=== PATIENT | female | born 1980 | race Caucasian/White ===

== ENCOUNTER 2019-08-11 17:27 | Emergency (ER) | payer BC, SELFPAY ==
[2019-08-11 17:59] VITALS: BP 120/70; PULSE 108; RESP 18; TEMP 37.4; O2SAT 100
--- NOTE | 2019-08-11 20:10 | ED.BACK ---
HPI - Back Pain/Injury General Chief Complaint: Back Pain/Injury Stated Complaint: 12 weeks preg, low back pain Time Seen by Provider: 08/11/19 19:24 Source: patient Mode of arrival: ambulatory Limitations: no limitations History of Present Illness HPI Narrative: This is a 38 year old 12 weeks that presents to the ER for low back pain since yesterday. Reports right low back/buttock pain. Reports the pain radiates down her leg. No known injury or trauma. She has not taken anything for the pain as she was unsure what was safe in . Pain is worse with movement and relieved with rest. Denies fever, abdominal pain, pelvic cramping, vaginal bleeding, vomiting, dysuria, or hematuria. Related Data Home Medications Medication Instructions Recorded Confirmed [id number] acid 1 tablet PO DAILY 08/11/19 [ Multi] Allergies Allergy/AdvReac Type Severity Reaction Status Date / Time Penicillins Allergy Intermediate HIVES/WELTS Verified 08/11/19 18:02 Review of Systems Review of Systems: Narrative: CONSTITUTIONAL: Denies fever GASTROINTESTINAL: Denies abdominal pain, nausea, vomiting GENITOURINARY: Denies dysuria or hematuria. MUSCULOSKELETAL: Reports back pain, joint pain, and myalgia. NEUROLOGIC: Denies numbness, or weakness. All systems reviewed & are unremarkable except as noted in HPI and below PMFSH Social History Social History (Updated 08/11/19 @ 20:16 by Halie Rodriguez PA-C) Smoking status: Former smoker Substance use: never Gender identity (if verbalized by the patient): Female Exam Narrative: Exam Narrative: GENERAL: Well-appearing, well-nourished, and in no acute distress. HEAD: Normocephalic, atraumatic. EYES: EOMI. CHEST: Clear to auscultation. No respiratory distress. No wheezes rales or rhonchi HEART: Regular rate and rhythm. No murmur heard. Normal peripheral pulses. ABDOMEN: Soft, nontender, nondistended, normal active bowel sounds. BACK: No midline spinal tenderness EXTREMITIES: Normal range of motion. No edema. Strength equal in bilateral lower extremities. Normal patellar reflexes bilaterally SKIN: Warm, dry, no rash. NEURO: No focal deficits. Alert and oriented x3. PSYCH: Normal mood and affect Course Consultations Consultation #1: Spoke with Dr. Kumar about patient work-up will follow-up in clinic Date: 08/11/19 Time: 21:02 Vital Signs Vital signs: Vital Signs Temperature 99.4 F 08/11/19 17:59 Pulse Rate 108 H 08/11/19 17:59 Respiratory Rate 18 08/11/19 17:59 Blood Pressure 120/70 08/11/19 17:59 Pulse Oximetry 100 08/11/19 17:59 Temperature 99.4 F 08/11/19 17:59 Pulse Rate 108 H 08/11/19 17:59 Respiratory Rate 18 08/11/19 17:59 Blood Pressure 120/70 08/11/19 17:59 Pulse Oximetry 100 08/11/19 17:59 Procedures Other Procedure Procedure 1: Other Procedure: Bedside ultrasound showed good movement and cardiac motion MDM - Back Pain/Injury MDM Narrative Medical decision making narrative: Patient presents to the emergency department for low back pain since yesterday. Patient is 12 weeks . No known injury or trauma. She is neurologically intact. No midline spinal tenderness. Denies any urinary complaints, abdominal pain, vomiting, pelvic cramping or vaginal bleeding. UA is without evidence of infection. Bedside ultrasound shows good movement and cardiac motion. Patient given a dose of Tylenol in the ED. She was instructed to rest, use ice/heat and take Tylenol as needed for pain. I spoke with Dr. Kumar about patient and work-up. She is to follow-up in clinic. Patient was given warnings to return to the ER Lab Data Labs: Lab Results 08/11/19 Range/Units 20:11 Urine Color Straw (Yellow) Urine Appearance Cloudy H (Clear) Urine pH 7.0 (5.0-9.0) Ur Specific [place] 1.006 (1.001-1.035) Urine Protein Negative (Negative) mg/dL Urine Glucose (UA)
[2019-08-11] MEDS: ACETAMINOPHEN 500 MG TABLET 1000 MG PO (20:20)
[2019-08-11 20:21] LABS: Add Urine Microscopic? YES; Appearance Urine Cloudy (Clear); Bacteria Urine Trace /hpf; Bilirubin Urine Negative (Negative); Blood Urine Negative (Negative); Color Urine Straw (Yellow); Glucose Urine UA Negative (Negative); Ketones Urine Negative (Negative); Leukocyte Esterase Ur Negative LEU/UL (Negative); Nitrate Urine Negative (Negative); Protein Urine Negative (Negative); RBC Urine 0-2 /hpf (0-2); Specific Grav Ur 1.006 (1.001-1.035); Squamous Epithelial Cell Urine Many /hpf (Few); Urobilinogen Urine Negative mg/dL (<2.0); WBC Urine 0-3 /hpf
== END 2019-08-11 21:13 | disposition home or self-care (01) ==
PROVIDERS: Physician Assistant; Emergency Provider Emergency Medicine
DX: O99.89 Other specified diseases and conditions complicating pregnancy, childbirth and the puerperium (principal); M54.41 Lumbago with sciatica, right side; Z87.891 Personal history of nicotine dependence; Z3A.12 12 weeks gestation of pregnancy
CPT/HCPCS: 81001; 99283; A9270

== ENCOUNTER 2019-10-22 21:35 | Observation (INO) | payer BC, SELFPAY ==
[2019-10-22 22:03] VITALS: BP 122/61; PULSE 97; TEMP 37.1
[2019-10-22 22:17] LABS: Add Urine Microscopic? YES; Appearance Urine Cloudy (Clear); Bacteria Urine Trace /hpf; Bilirubin Urine Negative (Negative); Blood Urine Negative (Negative); Color Urine Yellow (Yellow); Glucose Urine UA Negative (Negative); Ketones Urine Negative (Negative); Leukocyte Esterase Ur Negative LEU/UL (Negative); Nitrate Urine Negative (Negative); Protein Urine Negative (Negative); RBC Urine 0-2 /hpf (0-2); Specific Grav Ur 1.011 (1.001-1.035); Squamous Epithelial Cell Urine Many /hpf (Few); Urobilinogen Urine Negative mg/dL (<2.0); WBC Urine 0-3 /hpf
--- NOTE | 2019-11-01 09:38 | P.PNOB_ITS ---
OB - Triage/Final Diagnosis Evaluation Laboratory results: Laboratory Tests 10/22/19 22:04 Urine Color Yellow Urine Appearance Cloudy H Urine pH 6.0 Ur Specific [place] 1.011 Urine Protein Negative Urine Glucose (UA) Negative Urine Ketones Negative Ur Blood (Man) Negative Urine Nitrate Negative Urine Bilirubin Negative Urine Urobilinogen Negative Leukocyte Esterase Rfl Negative Urine RBC 0-2 Urine WBC 0-3 Ur Squamous Epith Cells Many H Urine Bacteria Trace Final Diagnosis (1) Abdominal pain affecting , antepartum: Code(s): O26.899 - Other specified related conditions, unspecified trimester; R10.9 - Unspecified abdominal pain Status: Acute
== END 2019-10-22 22:30 | disposition home or self-care (01) ==
PROVIDERS: Admitting Provider Obstetrics & Gynecology; Visit Provider Obstetrics & Gynecology
DX: O26.892 Other specified pregnancy related conditions, second trimester (principal); R10.9 Unspecified abdominal pain; Z3A.22 22 weeks gestation of pregnancy
CPT/HCPCS: 81001; G0378; G0379

== ENCOUNTER 2019-11-16 12:49 | Observation (INO) | payer BC, SELFPAY ==
[2019-11-16] VITALS (8 sets, daily range): BP systolic 109–129; BP diastolic 56–73; PULSE 88–102; TEMP 37.1; BMI 36.6
--- NOTE | ~2019-11-16 | US_ITS ---
US right upper quadrant INDICATION: Right upper quadrant abdominal pain. PROCEDURE: Realtime right upper abdominal ultrasound. COMPARISON: No prior studies for comparison. FINDINGS: The pancreas is not visualized due to bowel gas. Liver echotexture is normal without focal mass or intrahepatic biliary dilatation. There is normal directional flow in the portal vein. The gallbladder is normal without stones, gallbladder wall thickening or pericholecystic fluid. There is gallbladder sludge. Common bile duct measures 3 mm. No sonographic Garza's sign. IMPRESSION: 1: Gallbladder sludge. Otherwise, unremarkable limited abdominal ultrasound. Reviewed, dictated and finalized at location A.
[2019-11-16 13:54] LABS: Basophils Percent Auto 0.1 % (0.2-1.2); Eosinophils Absolute Auto 0.1 K/mm3 (0-0.3); Eosinophils Percent Auto 0.7 % (0-4.4); Hematocrit 27.2 % (37.0-47.0); Immature Granulocyte Absolute 0.14 K/mm3 (0.00-0.031); Immature Granulocyte Percent A 1.7 % (0-0.5); Lymphocytes Absolute Auto 2.05 K/mm3 (0.9-3.2); Lymphocytes Percent Auto 25.2 % (18.3-44.2); Mean Corpuscular HGB Conc 33.1 g/dl (32-36); Mean Corpuscular Volume 84.5 fl (80-100); Mean Platelet Volume 9.5 fl (7.4-10.4); Monocytes Absolute Auto 0.6 K/mm3 (0.1-0.6); Monocytes Percent Auto 6.9 % (2.6-8.5); Neutrophils Absolute Auto 5.3 K/mm3 (1.3-6.7); Neutrophils Percent Auto 65.4 % (45.5-73.1); Platelet Count Result 332 k/mm3 (150-375); Red Blood Count 3.22 M/mm3 (4.2-5.4); White Blood Count 8.1 K/mm3 (4.5-10.0)
[2019-11-16 13:55] LABS: Add Urine Microscopic? YES; Appearance Urine Cloudy (Clear); Bacteria Urine Trace /hpf; Bilirubin Urine Negative (Negative); Blood Urine Negative (Negative); Color Urine Straw (Yellow); Glucose Urine UA Negative (Negative); Ketones Urine Negative (Negative); Leukocyte Esterase Ur Negative LEU/UL (Negative); Nitrate Urine Negative (Negative); Protein Urine Negative (Negative); RBC Urine 0-2 /hpf (0-2); Specific Grav Ur 1.008 (1.001-1.035); Squamous Epithelial Cell Urine Many /hpf (Few); Urobilinogen Urine Negative mg/dL (<2.0); WBC Urine 0-3 /hpf
[2019-11-16] MEDS: ONDANSETRON HCL ODT 4 MG TABLET PO (14:07)
[2019-11-16] MEDS: FAMOTIDINE 20 MG TABLET PO (14:07)
--- NOTE | 2019-11-16 14:09 | OBADM ---
This patient, Emiliana Felix, admitted to the OB room OB Post 116 for observation. Patient/family oriented to hospital policies and general routines including ID bracelet, bed and alarms, visiting hours, pain management, procedures, bathroom and other care routines, personal items, smoking policy, room service/diet, and visiting hours. Patient/Family are encouraged to report perceived risks to care and to ask questions if they do not understand what they are told or what they should do.
[2019-11-16 14:28] LABS: Lipase 27 U/L (23-300)
[2019-11-16 14:30] LABS: Alanine Aminotransferase 11 U/L (4-35); Albumin Level 3.4 g/dL (3.5-5.1); Alkaline Phosphatase 59 U/L (38-126); Aspartate Amino Transferase 17 U/L (14-36); Bilirubin,Total < 0.1 mg/dL (0.2-1.3); Blood Urea Nitrogen 8 mg/dL (7-17); Calcium 8.1 mg/dL (8.4-10.2); Carbon Dioxide 22 mmol/L (22-30); Chloride 105 mmol/L (98-107); Estimated CRCL calculation 133 ml/min; Estimated Glomerular Filt Rate > 60; Glucose 108 mg/dL (65-105); Potassium 3.6 mmol/L (3.4-5.0); Sodium 134 mmol/L (137-145); Uric Acid 3.9 mg/dL (2.5-7.5)
[2019-11-16 15:15] LABS: Appearance Urine Cloudy (Clear); Color Urine Straw (Yellow)
[2019-11-16 15:16] LABS: Glucose Urine UA Negative (Negative); Protein Urine Negative (Negative); Specific Grav Ur 1.008 (1.001-1.035)
[2019-11-16 15:18] LABS: Blood Urine Negative (Negative); Ketones Urine Negative (Negative)
[2019-11-16 15:19] LABS: Bilirubin Urine Negative (Negative); Nitrate Urine Negative (Negative)
[2019-11-16 15:20] LABS: Urobilinogen Urine Negative mg/dL (<2.0)
[2019-11-16 15:23] LABS: Add Urine Microscopic? YES; RBC Urine 0-2 /hpf (0-2)
[2019-11-16 15:24] LABS: Squamous Epithelial Cell Urine Many /hpf (Few); WBC Urine 0-3 /hpf (0-3)
[2019-11-16 15:25] LABS: Bacteria Urine Trace /hpf
[2019-11-16 15:26] LABS: Leukocyte Esterase Ur Negative LEU/UL (NEGATIVE)
--- NOTE | 2019-11-20 10:04 | PM.OBTRLD ---
OB - Triage/Final Diagnosis Evaluation Laboratory results: Laboratory Tests 11/16/19 11/16/19 11/16/19 13:38 13:38 13:38 WBC 8.1 RBC 3.22 L Hgb 9.0 L Hct 27.2 L MCV 84.5 MCH 28.0 MCHC 33.1 RDW 13.0 Plt Count 332 MPV 9.5 Immature Gran % (Auto) 1.7 H Neut % (Auto) 65.4 Lymph % (Auto) 25.2 [place] % (Auto) 6.9 Eos % (Auto) 0.7 Baso % (Auto) 0.1 L Lymph # (Auto) 2.05 [place] # (Auto) 0.6 Eos # (Auto) 0.1 Baso # (Auto) 0.0 Abs Immat Gran (auto) 0.14 H Absolute Neuts (auto) 5.3 Absolute Nucleated RBC 0.0 Nucleated RBC % 0.0 Sodium 134 L Potassium 3.6 Chloride 105 Carbon Dioxide 22 BUN 8 Creatinine 0.50 L Estim Creat Clear Calc 133 Estimated GFR > 60 Glucose 108 H Uric Acid 3.9 Calcium 8.1 L Total Bilirubin < 0.1 L AST 17 ALT 11 Alkaline Phosphatase 59 Total Protein 6.0 L Albumin 3.4 L Lipase Urine Color Straw Urine Appearance Cloudy H Urine pH 6.0 Ur Specific [place] 1.008 Urine Protein Negative Urine Glucose (UA) Negative Urine Ketones Negative Ur Blood (Man) Negative Urine Nitrate Negative Urine Bilirubin Negative Urine Urobilinogen Negative Ur Leukocyte Esterase Negative Leukocyte Esterase Rfl Urine RBC 0-2 Urine WBC 0-3 Ur Squamous Epith Cells Many H Urine Bacteria Trace 11/16/19 11/16/19 13:38 13:38 WBC RBC Hgb Hct MCV MCH MCHC RDW Plt Count MPV Immature Gran % (Auto) Neut % (Auto) Lymph % (Auto) [place] % (Auto) Eos % (Auto) Baso % (Auto) Lymph # (Auto) [place] # (Auto) Eos # (Auto) Baso # (Auto) Abs Immat Gran (auto) Absolute Neuts (auto) Absolute Nucleated RBC Nucleated RBC % Sodium Potassium Chloride Carbon Dioxide BUN Creatinine Estim Creat Clear Calc Estimated GFR Glucose Uric Acid Calcium Total Bilirubin AST ALT Alkaline Phosphatase Total Protein Albumin Lipase 27 Urine Color Straw Urine Appearance Cloudy H Urine pH 6.0 Ur Specific [place] 1.008 Urine Protein Negative Urine Glucose (UA) Negative Urine Ketones Negative Ur Blood (Man) Negative Urine Nitrate Negative Urine Bilirubin Negative Urine Urobilinogen Negative Ur Leukocyte Esterase Leukocyte Esterase Rfl Negative Urine RBC 0-2 Urine WBC 0-3 Ur Squamous Epith Cells Many H Urine Bacteria Trace Final Diagnosis (1) Abdominal pain affecting , antepartum: Code(s): O26.899 - Other specified related conditions, unspecified trimester; R10.9 - Unspecified abdominal pain Status: Acute
== END 2019-11-16 15:25 | disposition home or self-care (01) ==
PROVIDERS: Admitting Provider Obstetrics & Gynecology; Visit Provider Obstetrics & Gynecology
DX: O26.892 Other specified pregnancy related conditions, second trimester (principal); R10.9 Unspecified abdominal pain; Z3A.26 26 weeks gestation of pregnancy
CPT/HCPCS: 36415; 76705; 80053; 81001; 83690; 84550; 85025; A9270; G0378; G0379

== ENCOUNTER 2019-11-30 11:11 | Outpatient (CLI) | payer BC, SELFPAY ==
[2019-11-30 13:50] LABS: Hematocrit 28.4 % (37.0-47.0); Hemoglobin 9.3 g/dL (12.0-15.0)
[2019-11-30 13:51] LABS: Glucose 1 Hour PP 50gm Dose 180 mg/dL
[2019-11-30 14:24] LABS: HIV 1/2 Ab P24 Ag Result Negative (Negative)
[2019-11-30] MEDS: RHO(D) IMMUNE GLOBULIN 300 MCG SYRINGE IM (17:32)
== END 2019-11-30 11:12 | disposition home or self-care (01) ==
LOC: ANHLAB 11:13
PROVIDERS: Visit Provider Obstetrics & Gynecology
DX: Z34.02 Encounter for supervision of normal first pregnancy, second trimester (principal)
CPT/HCPCS: 36415; 82947; 85014; 85018; 85461; 86703; 90384; 96372; G0432; J2790

== ENCOUNTER 2019-12-05 11:14 | Outpatient (CLI) | payer BC, SELFPAY ==
[2019-12-05 12:02] LABS: Glucose Fasting Gestational 95 mg/dL (>/=95)
[2019-12-05 14:09] LABS: Glucose 1 Hour Gest 230 mg/dL (>/=180)
[2019-12-05 15:02] LABS: Glucose 2 Hour Gest 220 mg/dL (>/= 155)
[2019-12-05 16:14] LABS: Glucose 3 Hour Gest 109 mg/dL (>/=140)
== END 2019-12-05 11:15 | disposition home or self-care (01) ==
PROVIDERS: Visit Provider Obstetrics & Gynecology
DX: R73.09 Other abnormal glucose (principal)
CPT/HCPCS: 36415; 82951; 82952

== ENCOUNTER 2019-12-19 01:12 | Observation (INO) | payer BC, SELFPAY ==
[2019-12-19 01:40] VITALS: BMI 38.7
[2019-12-19 01:45] VITALS: TEMP 37.2
[2019-12-19 01:57] VITALS: BP 120/58; PULSE 89
[2019-12-19 02:08] LABS: Add Urine Microscopic? NO; Appearance Urine Clear (Clear); Bilirubin Urine Negative (Negative); Blood Urine Negative (Negative); Color Urine Straw (Yellow); Glucose Urine UA Negative (Negative); Ketones Urine Negative (Negative); Leukocyte Esterase Ur Negative LEU/UL (Negative); Nitrate Urine Negative (Negative); Protein Urine Negative (Negative); Specific Grav Ur 1.009 (1.001-1.035); Urobilinogen Urine Negative mg/dL (<2.0)
--- NOTE | 2019-12-29 08:18 | P.PNOB_ITS ---
OB - Triage/Final Diagnosis Visit Information Comments/Additional reasons for admission: Abdominal pain Evaluation Laboratory results: Laboratory Tests 12/19/19 01:44 Urine Color Straw Urine Appearance Clear Urine pH 6.0 Ur Specific [place] 1.009 Urine Protein Negative Urine Glucose (UA) Negative Urine Ketones Negative Ur Blood (Man) Negative Urine Nitrate Negative Urine Bilirubin Negative Urine Urobilinogen Negative Leukocyte Esterase Rfl Negative
== END 2019-12-19 03:10 | disposition home or self-care (01) ==
PROVIDERS: Admitting Provider Obstetrics & Gynecology; Visit Provider Obstetrics & Gynecology
DX: O26.899 Other specified pregnancy related conditions, unspecified trimester (principal); R10.9 Unspecified abdominal pain; Z3A.00 Weeks of gestation of pregnancy not specified
CPT/HCPCS: 81003; G0378; G0379

== ENCOUNTER 2019-12-28 11:46 | Outpatient (CLI) | payer BC, SELFPAY ==
[2019-12-28 12:01] LABS: Hematocrit 31.1 % (37.0-47.0); Hemoglobin 10.2 g/dL (12.0-15.0); Mean Corpuscular HGB Conc 32.8 g/dl (32-36); Mean Corpuscular Hemoglobin 27.3 pg (26-34); Mean Corpuscular Volume 83.4 fl (80-100); Mean Platelet Volume 9.4 fl (7.4-10.4); Platelet Count Result 335 k/mm3 (150-375); Red Blood Count 3.73 M/mm3 (4.2-5.4); Red Cell Distribution Width 17.3 % (11.5-14.5); White Blood Count 10.6 K/mm3 (4.5-10.0)
== END 2019-12-28 11:47 | disposition home or self-care (01) ==
LOC: ANHLAB 11:47
PROVIDERS: Visit Provider Obstetrics & Gynecology
DX: Z34.02 Encounter for supervision of normal first pregnancy, second trimester (principal)
CPT/HCPCS: 36415; 59025; 76819; 85027

== ENCOUNTER 2020-02-09 10:35 | Inpatient (IN) | payer BC, SELFPAY ==
[2020-02-09] VITALS (8 sets, daily range): BP systolic 106–127; BP diastolic 53–109; PULSE 87–109; RESP 18–20; TEMP 36.6–36.8; BMI 39.4
--- NOTE | 2020-02-09 12:49 | PM.IMHP ---
H&P: HPI History of Present Illness Date/Time: 02/09/20 12:49 Chief complaint: Induction of Labor Narrative: Emiliana Felix is a 39yo @ 38.4wks who presented to L&D for her routine testing. She would found to have 3 prolonged decels. She reports feeling contractions. She endorses good movement. No LOF or VB. Her is complicated by: - AMA, cffDNA negative - A2GDM on insulin- lispro 6u TIDAC, Latus 18/24u qAM/PM - H/o of PE diagnosed in third trimester; lovenox 100mg BID --> was to be converted to heparin 35,000 q12h @ 36wks. Pt's last dose of anticoagulation was on 02/07/20 w/ Lovenox. - Rh negative s/p rhogam Review of Systems Constitutional: Constitutional: Denies body ache(s) and Denies chills Eyes: Eyes: Denies blurry vision Cardiovascular: Cardiovascular: Denies chest pain and Denies palpitations Respiratory: Respiratory: Denies cough and Denies dyspnea Gastrointestinal: Gastrointestinal: Reports abdominal pain (contractions), Denies nausea and Denies vomiting Genitourinary: Comments: no VB or LOF Neurologic: Denies headache(s) Psychiatric: Psychiatric: Denies anxiety [facility] Family History Family History Grandparent Cancer Social History Social History Smoking status: Former smoker Substance use: never Gender identity (if verbalized by the patient): Female Spiritual care concerns: No Meds Home Medications and Allergies Home Medications Medication Instructions Recorded Confirmed Type Multi 1 tablet PO DAILY 08/11/19 01/18/20 History ferrous sulfate 325 mg PO HS 01/18/20 01/18/20 History heparin (porcine) 20,000 unit SUBCUT BID 01/19/20 01/19/20 History insulin glargine [Lantus U-100 18 unit SUBCUT BID 01/19/20 02/02/20 History Insulin] Allergies Allergy/AdvReac Type Severity Reaction Status Date / Time Penicillins Allergy Intermediate HIVES/WELTS Verified 01/19/20 14:30 Exam Const: General: comfortable and no acute distress Resp: Effort & Inspection: normal respiratory effort Cardio: Rate: regular rate : Other: FHT's: 140's/ mod veronica/ + accels/ prolonged decels x4 (lasting 2-3min to 120's) - cat 2 TOCO: irregular ctx's Cervix: closed/thick/high Membranes: intact position: cephalic Skin: General skin exam: normal color Neuro: Speech: normal speech Extrem: General: normal to inspection Psych: Affect: normal affect Assessment and Plan Assessment and plan (1) Pulmonary embolism affecting : Qualifiers: Trimester: third trimester Qualified Code(s): O88.213 - Thromboembolism in , third trimester Code(s): O88.219 - Thromboembolism in , unspecified trimester Status: Acute (2) Gestational diabetes: Qualifiers: Gestational diabetes mellitus control: insulin-controlled Trimester: third trimester Qualified Code(s): O24.414 - Gestational diabetes mellitus in , insulin controlled Code(s): O24.419 - Gestational diabetes mellitus in , unspecified control Status: Acute (3) : Qualifiers: Weeks of gestation: 38 weeks Qualified Code(s): Z3A.38 - 38 weeks gestation of Code(s): Z34.90 - Encounter for supervision of normal , unspecified, unspecified trimester Status: Acute (4) Advanced maternal age (AMA) in : Status: Acute (5) heart deceleration: Status: Acute Assessment and Plan: - Pt presented for routine testing and was found to have 3 prolonged decels below baseline lasting 1-2 min - Due to patients complex medical history; plan was made for induction today - Cervix close; will proceed with cervidil induction - Continuous monitoring; good variability noted, will monitor closely for decels - Anesthesia consult Additional Plan
[2020-02-09 13:26] LABS: Basophils Percent Auto 0.2 % (0.2-1.2); Eosinophils Absolute Auto 0.1 K/mm3 (0-0.3); Eosinophils Percent Auto 0.6 % (0-4.4); Hematocrit 37.1 % (37.0-47.0); Hemoglobin 12.4 g/dL (12.0-15.0); Immature Granulocyte Absolute 0.21 K/mm3 (0.00-0.031); Immature Granulocyte Percent A 1.8 % (0-0.5); Lymphocytes Absolute Auto 3.53 K/mm3 (0.9-3.2); Lymphocytes Percent Auto 30.3 % (18.3-44.2); Mean Corpuscular HGB Conc 33.4 g/dl (32-36); Mean Corpuscular Hemoglobin 28.2 pg (26-34); Mean Corpuscular Volume 84.3 fl (80-100); Mean Platelet Volume 9.9 fl (7.4-10.4); Monocytes Absolute Auto 0.8 K/mm3 (0.1-0.6); Monocytes Percent Auto 6.7 % (2.6-8.5); Neutrophils Percent Auto 60.4 % (45.5-73.1); Platelet Count Result 339 k/mm3 (150-375); Red Cell Distribution Width 18.2 % (11.5-14.5); White Blood Count 11.6 K/mm3 (4.5-10.0)
--- NOTE | 2020-02-09 14:34 | LDADM ---
This patient, Emiliana Felix, was admitted to Labor/Delivery/Recovery 104 on 02/09/20 at 10:35. Plans for labor, pain management and were discussed with patient. Patient/family oriented to hospital policies and general routines including ID bracelet, bed and alarms, visiting hours, pain management, procedures, bathroom and other care routines, personal items, smoking policy, room service/diet and guest tray routines, infant security routines, and visiting hours. Patient/Family are encouraged to report perceived risks to care and to ask questions if they do not understand what they are told or what they should do. See OBIX for further documentation.
[2020-02-09] MEDS: DINOPROSTONE 10 MG VAG INSERT VAGINAL (14:35)
[2020-02-09 15:10] LABS: Glucose Point of Care 119 (65-105)
--- NOTE | 2020-02-09 16:03 | WPDANESEPP ---
Anes - Eval Pre Procedure Procedure: Labor Epidural Date/Time: 02/09/20 16:03 Surgeon: Spencer Kumar Preop Diagnosis: Pain During Labor Pre Op Diagnosis: Induction of Labor Patient Data Age: 39 Gender: F Height: Weight: Last Vital Signs Pulse 109 H 02/09/20 16:01 BP 108/61 02/09/20 16:01 Allergies Allergy/AdvReac Type Severity Reaction Status Date / Time Penicillins Allergy Intermediate HIVES/WELTS Verified 01/19/20 14:30 Home Medications Medication Instructions Recorded Confirmed Type Multi 1 tablet PO DAILY 08/11/19 02/09/20 History ferrous sulfate 325 mg PO HS 01/18/20 02/09/20 History heparin (porcine) 20,000 unit SUBCUT BID 01/19/20 01/19/20 History insulin glargine [Lantus U-100 18 unit SUBCUT QAM 01/19/20 02/09/20 History Insulin] famotidine 20 mg PO DAILY 02/09/20 02/09/20 History insulin glargine [Lantus U-100 24 unit SUBCUT HS 02/09/20 02/09/20 History Insulin] insulin regular hum U-500 conc 6 unit SUBCUT QACBREAK 02/09/20 02/09/20 History [Humulin R U-500 (Conc) Insulin] insulin regular hum U-500 conc 6 unit SUBCUT QACDINNER 02/09/20 02/09/20 History [Humulin R U-500 (Conc) Insulin] insulin regular hum U-500 conc 6 unit SUBCUT QACLUNCH 02/09/20 02/09/20 History [Humulin R U-500 (Conc) Insulin] Laboratory Tests 02/09/20 02/09/20 02/09/20 13:18 13:18 13:18 WBC 11.6 K/mm3 H K/mm3 (4.5-10.0) RBC 4.40 M/mm3 M/mm3 (4.2-5.4) Hgb 12.4 g/dL g/dL (12.0-15.0) Hct 37.1 % % (37.0-47.0) MCV 84.3 fl fl (80-100) MCH 28.2 pg pg (26-34) MCHC 33.4 g/dl g/dl (32-36) RDW 18.2 % H % (11.5-14.5) Plt Count 339 k/mm3 k/mm3 (150-375) MPV 9.9 fl fl (7.4-10.4) Immature Gran % (Auto) 1.8 % H % (0-0.5) Neut % (Auto) 60.4 % % (45.5-73.1) Lymph % (Auto) 30.3 % % (18.3-44.2) [place] % (Auto) 6.7 % % (2.6-8.5) Eos % (Auto) 0.6 % % (0-4.4) Baso % (Auto) 0.2 % % (0.2-1.2) Lymph # (Auto) 3.53 K/mm3 H K/mm3 (0.9-3.2) [place] # (Auto) 0.8 K/mm3 H K/mm3 (0.1-0.6) Eos # (Auto) 0.1 K/mm3 K/mm3 (0-0.3) Baso # (Auto) 0.0 K/mm3 K/mm3 (0.0-0.1) Abs Immat Gran (auto) 0.21 K/mm3 H K/mm3 (0.00-0.031) Absolute Neuts (auto) 7.0 K/mm3 H K/mm3 (1.3-6.7) Absolute Nucleated RBC 0.0 K/mm3 K/mm3 (0.0-0.012) Nucleated RBC % 0.0 % % (0.0-0.2) POC Capillary Glucose RPR Pending Blood Type A Negative Antibody Screen Negative 02/09/20 15:07 WBC RBC Hgb Hct MCV MCH MCHC RDW Plt Count MPV Immature Gran % (Auto) Neut % (Auto) Lymph % (Auto) [place] % (Auto) Eos % (Auto) Baso % (Auto) Lymph # (Auto) [place] # (Auto) Eos # (Auto) Baso # (Auto) Abs Immat Gran (auto) Absolute Neuts (auto) Absolute Nucleated RBC Nucleated RBC % POC Capillary Glucose 119 mg/dl H mg/dl (65-105) RPR Blood Type Antibody Screen : gestational age (MANJU 02/18) Patient hx anesthesia problems: none Family hx anesthesia problems: none [facility] Past Medical History Medical History (Updated 02/09/20 @ 16:04 by Jaun Kirby CRNA) GERD (gastroesophageal reflux disease) Gestational diabetes Pulmonary embolism affecting Family History Family History Grandparent Cancer Social History Social History Smoking status: Never smoker Substance use: never Gender identity (if verbalized by the patient): Female Spiritual care concerns: No Exam Day of Procedure 02/09/20 16:03 Patient weight: obe
[2020-02-09] MEDS: INSULIN HUMAN REGULAR (*BKC) 100 UNITS/ML 6 UNITS SUB-Q (18:56)
[2020-02-09 21:05] LABS: Glucose Point of Care 85 (65-105)
[2020-02-10] VITALS (76 sets, daily range): BP systolic 97–140; BP diastolic 43–98; PULSE 66–101; RESP 14–20; TEMP 36.1–37.1; O2SAT 95–100
[2020-02-10 02:42] LABS: Glucose Point of Care 95 (65-105)
[2020-02-10] MEDS: LACTATED RINGERS 1,000 ML 125 ML IV CONT ×2 (03:04→10:43)
[2020-02-10] MEDS: OXYTOCIN 30 UNITS/NS 500 ML 30 UNITS/500 ML BAG IV CONT (03:04)
[2020-02-10 05:50] LABS: Glucose Point of Care 98 (65-105)
[2020-02-10 09:32] LABS: Glucose Point of Care 78 (65-105)
--- NOTE | 2020-02-10 10:29 | P.PNOB_ITS ---
Pain Control Date/time seen: 02/10/20 10:29 Pain control: tolerating well Pelvic Exam Dilation (cm): 0 Effacement (%): 50 station: -4 Amniotic membrane status: Intact Contractions Monitor mode: External Contraction frequency: 3 Contraction pattern: Regular Status status: Category ll Assessment and Plan Pitocin rate (mU/min): 8 Assessment: other (pitocin stopped when recurrent variable noted) Plan: Comments: - pt s/p cervidil overnight; removed @ 0230 and cervix continued to be closed - pitocin augmentation was started; pt was ryan adequately, however, occasional decels were noted but resolved spontaneously and variability was reassuring - pt has remained closed and severe variable decels were noted; pitocin was discontinued with intrauterine resuscitation, heart tones returned to baseline with decreased variability - pt is remote from delivery and inability to augment; plan for primary c- section - risks/benefits explained in detail; pt agrees - anesthesia aware of pts hx of PE; however, no anticoagulation since 02/07/20-- plan to proceed with spinal epidural
[2020-02-10] MEDS: CLINDAMYCIN 900 MG/NS 50 ML 900 MG/50 ML PIGGYBACK 50 MG IVPB (10:42)
--- NOTE | 2020-02-10 11:10 | WPDANESEFPP ---
Anes - Eval Final PreProcedure Day of Procedure 02/10/20 11:10 Patient weight: obese Lungs: clear to auscultation Airway: Mallampati scale class II Neurological: alert and oriented Last oral intake: >/= 8 hours ASA classification: III Anesthetic plan: proceed Anesthesia type and monitoring: regional spinal Informed Consent: The patient's anesthetic plan of spinal for C/C with Dr. Gurrola and its attendant risks and benefits were discussed with the patient/family/POA. Questions were solicited and answers provided to the satisfaction of the patient/family/POA.
--- NOTE | 2020-02-10 12:39 | PM.OBPRVD ---
OB - Delivery Note Procedure Delivery date: 02/10/20 Procedure: Procedures Operation Date: 02/10/20 11:00 <No data on this case meets the specified criteria> events: Rh Incompatibility and Labor Induction (for decels-- pt also has h/o PE in 3rd trimester) Intrapartal events: Intolerance Induction method: other (cervidil) Delivery augmentation: pitocin Delivery monitor: external FHT and external uterine Route of delivery: Estimated blood loss (mL): 340 Anesthesia type: Spinal Disposition: PACU Narrative: She was counseled on all risks and benefits in detail. She was taken to the operating room where spinal epidural was placed. She was then prepped and draped in the normal sterile fashion. She received Clindamycin and Gentamicin and a time out was performed. A Pfannenstiel incision was made in the skin and carried down to the underlying fascia. The fascia was nicked on either side of the midline and the fascial incision was extended laterally and superiorly. The fascia was then elevated and the underlying rectus muscles were dissected off the fascia, superiorly and inferiorly. The rectus muscles were then in the midline and the peritoneum was entered bluntly. Once adequate exposure was obtained, a Mobix self retractor was placed within the abdomen. A bladder flap was created. A low transverse incision was made on the lower uterine segment and clear fluid was noted. The occicuput was brought to the hysterotomy and the head was easily delivered. The shoulder and body then followed without complications. The fetus had spontaneous cry and the mouth and nose were bulb suctioned. The cord was clamped and cut and the fetus was handed off to the awaiting pediatric nurse. A segment of the cord was collected for cord gases. The remaining cord blood was collected for typing. With pitocin infusing, the placenta delivered with gentle traction on the cord without complications. The uterus was then cleared out of all clots and debris using a clean, moist lap. The hysterotomy was then repaired in a running, interlocking fashion using 0 Vicryl. A second layer imbricating suture was then made using 0 Vicryl. A figure of 8 stitch using 0 Vicryl was placed in the middle of the incision and the hysterotomy was found to be hemostatic. Good uterine tone was noted. The bilateral adnexa were examined and found to be normal, small adhesion from the epiploic to the left broad ligament were noted. The pelvis was cleared of all clots and fluid. The Mobix retractor was removed from the abdomen. The peritoneum, muscle, and fascia were examined and made hemostatic with bovie cautery. The fascia was then repaired using a 0 Vicryl sutures in a running fashion. The subcutaneous tissue was then irrigated and made hemostatic with bovie cautery. The subcutaneous tissue was then reapproximated using 2-0 Vicryl. The skin was then closed using 3-0 Monocryl in a running subcuticular fashion. Sponge, lap, needle and instrument counts were correct at the end of the procedure x2. The patient tolerated the procedure well and was taken to recovery in a stable condition. Baby Date of : 02/10/20 Time of : 11:50 Weeks of gestation at delivery: 38 gender: Female Weight (pounds): 7 Weight (ounces): 10 presentation: vertex Placenta delivery description: Manual Removal cord vessel description: 3 Vessels score one minute: 8 score five minutes: 9
--- NOTE | 2020-02-10 15:03 | OBPPTRN ---
Patient transferred to post room # 282 via stretcher. Support person present. Oriented to unit, room, information board, rooming in, admission packet and security measures. Patient verbalizes understanding.
[2020-02-10] MEDS: DOCUSATE SODIUM 100 MG CAPSULE PO (16:56)
[2020-02-10] MEDS: ACETAMINOPHEN 325 MG TABLET 650 MG PO ×2 (16:56→23:08)
[2020-02-10] MEDS: DEXTROSE 5%/0.45% SOD CHL 1,000 ML 125 ML IV CONT (19:11)
[2020-02-11] MEDS: ENOXAPARIN 100 MG/ML SYRINGE SUB-Q ×2 (00:20→11:59)
[2020-02-11 04:30] VITALS: BP 120/66; PULSE 95; TEMP 37; O2SAT 96
[2020-02-11] MEDS: ACETAMINOPHEN 325 MG TABLET 650 MG PO ×4 (04:30→22:53)
[2020-02-11 04:50] LABS: Basophils Percent Auto 0.3 % (0.2-1.2); Eosinophils Absolute Auto 0.2 K/mm3 (0-0.3); Eosinophils Percent Auto 1.5 % (0-4.4); Hematocrit 32.6 % (37.0-47.0); Hemoglobin 10.9 g/dL (12.0-15.0); Immature Granulocyte Absolute 0.12 K/mm3 (0.00-0.031); Lymphocytes Absolute Auto 2.44 K/mm3 (0.9-3.2); Lymphocytes Percent Auto 19.7 % (18.3-44.2); Mean Corpuscular HGB Conc 33.4 g/dl (32-36); Mean Corpuscular Hemoglobin 28.2 pg (26-34); Mean Corpuscular Volume 84.5 fl (80-100); Mean Platelet Volume 10.1 fl (7.4-10.4); Monocytes Absolute Auto 0.6 K/mm3 (0.1-0.6); Monocytes Percent Auto 4.7 % (2.6-8.5); Neutrophils Percent Auto 72.8 % (45.5-73.1); Platelet Count Result 256 k/mm3 (150-375); Red Blood Count 3.86 M/mm3 (4.2-5.4); White Blood Count 12.4 K/mm3 (4.5-10.0)
[2020-02-11 05:05] LABS: Alanine Aminotransferase 12 U/L (4-35); Albumin Level 2.9 g/dL (3.5-5.1); Alkaline Phosphatase 85 U/L (38-126); Anion Gap 5 mmol/L (8-16); Aspartate Amino Transferase 22 U/L (14-36); Bilirubin,Total 0.4 mg/dL (0.2-1.3); Blood Urea Nitrogen 5 mg/dL (7-17); Calcium 8.1 mg/dL (8.4-10.2); Carbon Dioxide 23 mmol/L (22-30); Chloride 103 mmol/L (98-107); Estimated CRCL calculation 139 ml/min; Estimated Glomerular Filt Rate > 60; Glucose 96 mg/dL (65-105); Potassium 3.9 mmol/L (3.4-5.0); Sodium 131 mmol/L (137-145)
[2020-02-11 07:05] VITALS: BP 131/68; PULSE 101; TEMP 37.1
[2020-02-11] MEDS: FAMOTIDINE 20 MG TABLET PO (08:43)
[2020-02-11] MEDS: MULTIVIT/MIN/PREN/FOL AC/IRON TABLET 1 TAB PO (08:43)
[2020-02-11] MEDS: DOCUSATE SODIUM 100 MG CAPSULE PO ×3 (08:43→18:52)
[2020-02-11] MEDS: TETANUS,DIPHTHERIA,AC PERTUSSIS ADULT (0.5 ML) BOOSTRIX IM (08:44)
--- NOTE | 2020-02-11 10:53 | WPDANLDPN2 ---
Anes-Prog Note L&D Date/Time: 02/11/20 10:53 Comfortable throughout: section Neuraxial method: spinal Epidural/Spinal procedure site: clean & non-tender Neuro status: Neuro function grossly intact. Cardiovascular status: normal Respiratory status: normal Airway patency: baseline Mental status: baseline Post-Op hydration status: normal Vital Signs: Last Vital Signs Temp 37.1 C 02/11/20 07:05 Pulse 101 H 02/11/20 07:05 Resp 18 02/10/20 18:00 BP 131/68 02/11/20 07:05 Pulse Ox 96 02/11/20 04:30 I/O: Intake & Output 02/10/20 02/11/20 02/11/20 23:59 07:59 15:59 Intake Total 1400 1150 Output Total 2050 1650 650 Balance -650 -500 -650 Post-procedural complaints: none Patient feedback: Patient satisfied with anesthetic care.
--- NOTE | 2020-02-11 10:53 | WPDANLDNPN2 ---
Anes-Prog Note L&D-Neuraxial Date/Time: 02/11/20 10:53 Neuraxial medications: intrathecal PF morphine Opiod-related complaints: none Patient feedback: Patient satisfied with post-operative pain management.
--- NOTE | 2020-02-11 12:02 | PM.OBPNVD ---
OB - PN: Subj Subjective Date/time seen: 02/11/20 12:02 POD#1 Emiliana reports doing well. She states her pain is controlled with the medications. Her bleeding is light. She has had CLD, she ordered lunch. She reports ambulating in the room w/o issues. She has voided. She has not passed gas yet. She is breast feeding. She has been getting her lovenox injections. She denies CP, SOB, palpitations, ZABALA, vision changes, N/V, fever, chills, or dizziness. OB - PN: Obj Data Labs CBC & Chem 7: 02/11/20 04:44 02/11/20 04:44 Labs: Laboratory Results - last 24 hr 02/11/20 02/11/20 02/11/20 04:44 04:44 04:44 WBC 12.4 H RBC 3.86 L Hgb 10.9 L Hct 32.6 L MCV 84.5 MCH 28.2 MCHC 33.4 RDW 18.0 H Plt Count 256 MPV 10.1 Immature Gran % (Auto) 1.0 H Neut % (Auto) 72.8 Lymph % (Auto) 19.7 [place] % (Auto) 4.7 Eos % (Auto) 1.5 Baso % (Auto) 0.3 Lymph # (Auto) 2.44 [place] # (Auto) 0.6 Eos # (Auto) 0.2 Baso # (Auto) 0.0 Abs Immat Gran (auto) 0.12 H Absolute Neuts (auto) 9.0 H Absolute Nucleated RBC 0.0 Nucleated RBC % 0.0 Sodium 131 L Potassium 3.9 Chloride 103 Carbon Dioxide 23 Anion Gap 5 L BUN 5 L Creatinine 0.50 L Estim Creat Clear Calc 139 Estimated GFR > 60 Glucose 96 Calcium 8.1 L Total Bilirubin 0.4 AST 22 ALT 12 Alkaline Phosphatase 85 Total Protein 6.0 L Albumin 2.9 L Blood Type A Negative Antibody Screen TNP Screen Negative Baby's Blood Type O pos Baby's XUAN Negative Doses of RhIg Required 1 OB - PN A/P Assessment and Plan (1) S/P section: Code(s): Z98.891 - History of uterine scar from previous surgery Status: Acute (2) Pulmonary embolism affecting : Qualifiers: Trimester: third trimester Qualified Code(s): O88.213 - Thromboembolism in , third trimester Code(s): O88.219 - Thromboembolism in , unspecified trimester Status: Acute Plan day: 1 Comments: - Meeting most postop milestones; pt to have regular diet, awaiting passage of gas - Pain meds PRN - Lovenox 100mg q12h -- to be continued for 12 wks PP. Pt has appt scheduled w/ biology lecturer in March - No concerning symptoms - H/H, vitals and exam stable - Possible discharge home tomorrow Time Spent With Patient Time: Total time spent is greater than 50% in coordination of care (as documented) at patient's floor/unit and/or counseling patient: Review of Systems Review of Systems: All systems reviewed & are unremarkable except as noted in HPI and below (HPI) Exam Const: General: comfortable, no acute distress, alert and awake Orientation/consciousness: patient oriented x3 Resp: Effort & Inspection: normal respiratory effort Auscultation: clear to auscultation bilaterally Cardio: Rate: tachycardic GI: Auscultation: normal bowel sounds Other: non-distended, soft, appropriately tender, pfannestiel incision covered w/ clean pressure dressing : Other: fundus firm below umbilicus Psych: Appearance: grossly normal Affect: normal affect Attitude: cooperative
[2020-02-11] MEDS: RHO(D) IMMUNE GLOBULIN 300 MCG SYRINGE IM (13:56)
[2020-02-11] MEDS: SIMETHICONE 80 MG TAB.CHEW PO ×3 (15:07→22:53)
[2020-02-11 18:36] VITALS: BP 129/60; PULSE 106; RESP 18; TEMP 37.5; O2SAT 96
[2020-02-12] MEDS: ENOXAPARIN 100 MG/ML SYRINGE SUB-Q ×2 (00:04→12:05)
[2020-02-12] MEDS: SIMETHICONE 80 MG TAB.CHEW PO ×2 (03:17→05:12)
[2020-02-12] MEDS: ACETAMINOPHEN 325 MG TABLET 650 MG PO ×2 (05:12→12:06)
[2020-02-12] MEDS: DOCUSATE SODIUM 100 MG CAPSULE PO (08:52)
[2020-02-12] MEDS: MULTIVIT/MIN/PREN/FOL AC/IRON TABLET 1 TAB PO (08:52)
[2020-02-12] MEDS: FAMOTIDINE 20 MG TABLET PO (08:52)
[2020-02-12 08:55] VITALS: BP 118/56; PULSE 103; RESP 18; TEMP 36.8; O2SAT 99
[2020-02-12 08:57] LABS: Rapid Plasma Reagin Non-Reactive (NonReactive)
--- NOTE | 2020-02-12 09:05 | PC.NURSE ---
Consult with pt., mother states she wishes to breastfeed she has been bottle feeding and pumping at times. Discussed the importance of putting infant to breast each feeding and pumping to stimulate milk supply. Offered to assist with next feeding. Mother states she will call out if she decided to put to breast next feeding.
[2020-02-12] MEDS: MEASLES,MUMPS,RUBELLA VACCINE 0.5 ML VIAL SUB-Q (12:48)
--- NOTE | 2020-02-12 13:15 | PC.NURSE ---
Patient instructed on viewing the discharge video Mother & Baby Care, The First Two Weeks online. Patient was given the opportunity and encouraged to ask questions. Patient verbalized understanding of information shared and has been given the mother/baby guide for home reference.
[2020-02-14 09:58] VITALS: BP 129/68; PULSE 96; RESP 20; TEMP 36.8; O2SAT 99
--- NOTE | 2020-02-14 12:52 | PM.OBDSVD ---
DS: Admitting Diagnosis Admitting Diagnosis Admitting Diagnosis: Induction of Labor/ decels DS: Discharge Diagnosis Discharge Diagnosis (1) Gestational diabetes: Qualifiers: Gestational diabetes mellitus control: insulin-controlled Trimester: third trimester Qualified Code(s): O24.414 - Gestational diabetes mellitus in , insulin controlled Code(s): O24.419 - Gestational diabetes mellitus in , unspecified control Status: Acute (2) Pulmonary embolism affecting : Qualifiers: Trimester: third trimester Qualified Code(s): O88.213 - Thromboembolism in , third trimester Code(s): O88.219 - Thromboembolism in , unspecified trimester Status: Acute (3) S/P section: Code(s): Z98.891 - History of uterine scar from previous surgery Status: Acute (4) heart deceleration: Status: Acute OB - DS: Summary OB Procedures : NST and Ultrasound OB Procedures Intrapartum: low cervical, transverse OB Procedures: : RHo (D) lg Peripartum Data Infant Delivery Method: Section Procedures: Procedures Operation Date: 02/10/20 11:00 Actual Procedures Side Surgeon p Section Melissa Gurrola MD complications: none 1: Gender: Female Disposition of : home Status at Discharge Functional status at discharge: independent ambulation Overall status at discharge: patient is back to baseline Time Spent with Patient Time attestation: Total time spent providing and/or coordinating discharge services: Exam Const: General: comfortable, no acute distress, alert and awake Orientation/consciousness: patient oriented x3 Limitations: no limitations Resp: Effort & Inspection: normal respiratory effort Auscultation: clear to auscultation bilaterally Cardio: Rate: regular rate GI: Inspection: non-distended GI Palp: Yes Soft to palpation and No Tenderness to palpation present (GI) Auscultation: normal bowel sounds Other: pfannenstiel incision c/d/i w/o s/sx of infection : Other: fundus firm below umbilicus Psych: Appearance: grossly normal Affect: normal affect Attitude: cooperative Thought content: Yes Normal thought content present Judgement: Good judgement present (Psych) DS: Data Data Completed and Pending Pending studies at discharge: Pending at discharge 02/10/20 13:11 Surgical [PTH] Routine Discharge Plan Discharge Attending physician on discharge: Melissa Gurrola Consulting providers: Galileo Beavers Discharging Clinician: Melissa Gurrola Anticipated Discharge Date/Time: 02/12/20 19:00 Patient Disposition: Home, Self-Care Activity: no straining and pelvic rest Diet: regular Wound Care Instructions: incision open to air Discharge Instructions: No heavy lifting over 10 pounds. Remove any dressing after 48 hours; no cream/ointments-- keep clean and dry. Education: Mom and Baby Guide and Preeclampsia Handout Given to: Mother Follow-Up: Call your delivering provider's office for an appointment to be seen in: 2 Weeks Mom and baby should come to the [facility] for the follow-up appointment. Appointment Date/Time: February 14, 2020 at 10:00 am What to expect at your follow-up visit: Physical Assessment Call [phone] if you are unable to keep your appointment time. BREAST CARE: * Wear a snug supportive bra. * For engorgement discomfort: Breast Feeding: * Apply warm moist washcloths * Express milk as needed to relieve engorgement * Wear loose clothing Bottle Feeding: * May apply ice packs * For sore nipples: * Identify correct latch-on * Apply warm moist washcloths before and after nursing * Air dry nipples after nursing * May apply Lansinoh cream to nipples ABDOMINAL
== END 2020-02-12 15:20 | disposition home or self-care (01) | DRG 540 ==
LOC: ANHLDR 17:50 → ANHOB2 02-11 12:26 → ANHLDR 02-14 07:49 → ANHOB2 02-14 07:49
PROVIDERS: Admitting Provider Obstetrics & Gynecology; Visit Provider Obstetrics & Gynecology
PROC: 10D00Z1 Extraction of Products of Conception, Low, Open Approach (ICD-10-PCS; CPT 59514; principal; 2020-02-10 11:00)
DX: O36.8330 Maternal care for abnormalities of the fetal heart rate or rhythm, third trimester, not applicable or unspecified (principal); Z37.0 Single live birth; Z3A.38 38 weeks gestation of pregnancy; O24.424 Gestational diabetes mellitus in childbirth, insulin controlled; Z23 Encounter for immunization; O88.213 Thromboembolism in pregnancy, third trimester; I26.99 Other pulmonary embolism without acute cor pulmonale; O36.0930 Maternal care for other rhesus isoimmunization, third trimester, not applicable or unspecified; O99.62 Diseases of the digestive system complicating childbirth; O99.214 Obesity complicating childbirth; E66.9 Obesity, unspecified; K21.9 Gastro-esophageal reflux disease without esophagitis
CPT/HCPCS: 36415; 80053; 85025; 85461; 86592; 86850; 86900; 86901; 88307; 90384; 90471; 90686; 90710; 90715; A9270; G0008; J0131; J1580; J1650; J1815; J2274; J2405; J2590; J2790; J7120

== ENCOUNTER 2020-02-09 10:36 | Outpatient (RCR) | payer BC, SELFPAY ==
[2019-12-28 11:30] VITALS: BP 129/52; PULSE 99
[2020-01-01 10:32] VITALS: BP 115/68; PULSE 99
[2020-01-08 11:30] VITALS: BP 117/63; PULSE 96
[2020-01-12 10:52] VITALS: BP 139/56; PULSE 101
[2020-01-15 12:05] VITALS: BP 122/99; PULSE 96
[2020-01-18 10:49] VITALS: BP 110/49; PULSE 95
[2020-01-22 12:48] VITALS: BP 125/60; PULSE 99
[2020-01-26 11:24] VITALS: BP 124/74; PULSE 105
[2020-01-29 10:51] VITALS: BP 126/66; PULSE 98
--- NOTE | 2020-01-29 11:21 | PC.NURSE ---
1120- BPP 01/12
[2020-02-02 12:16] VITALS: BP 125/67; PULSE 104
[2020-02-05 10:20] VITALS: BP 118/59; PULSE 100
--- NOTE | ~2020-02-09 | US_ITS ---
EXAMINATION: US OB BPP wo non-stress DATE: 01/08/2020 11:52 INDICATION: Maternal gestational diabetes during third trimester of . TECHNIQUE: Real-time pelvic ultrasound was performed. The interpreting radiologist was not present fo r the study. COMPARISON: 12/28/2019 FINDINGS: There is a single living fetus in vertex presentation. The placenta is anterior. heart rate is 135 beats per minute (bpm). Amniotic fluid volume appears subjectively normal Biophysical profile performed by the technologist: breathing (30 sec sustained breathing in 30 minutes): 2 out of 2 movement (3 gross body movements in 30 minutes): 2 out of 2 tone (one episode of zpfyvnr-muafrjxqy-isgcjbg limb movement): 2 out of 2 Amniotic fluid pocket (2 cm): 2 out of 2 Total score: 8 out of 8 IMPRESSION: 1. Single living fetus in vertex presentation with heart rate of 135 bpm. 2. Biophysical profile 8 out of 8. Reviewed, dictated and finalized at location A.
--- NOTE | ~2020-02-09 | US_ITS ---
EXAMINATION: US OB BPP wo non-stress EXAM DATE: 01/22/2020 12:22 INDICATION: Gestational diabetes. PE. 3rd trimester. TECHNIQUE: Pelvic obstetrical transabdominal sonogram was performed by a technologist. There are mu ltiple grayscale and Doppler images available for interpretation. Comparison is made to prior examina tion from 01/15/2020. FINDINGS: There is a single fetus identified in vertex presentation with a heart rate of 157 beats pe r minute. The placenta is located in the anterior fundal position. There is no sonographic evidence of retroplacental hemorrhage identified. There is subjectively expected amount of amniotic fluid. BIOPHYSICAL PROFILE (performed by the technologist) breathing (30 sec sustained breathing in 30 minutes): 0 out of 2 movement (3 gross body movements in 30 minutes): 2 out of 2 tone (one episode of xlgkutz-kuabxeolw-hxvzsrc limb movement): 2 out of 2 Amniotic fluid pocket (2 cm): 2 out of 2 Total score: 6 out of 8 IMPRESSION: 1. Single fetus with heart rate of 157 bpm. 2. Abnormal BPS 6/8, no breathing observed. Reviewed, dictated and finalized at location B.
--- NOTE | ~2020-02-09 | US_ITS ---
EXAMINATION: US OB BPP wo non-stress DATE: 12/28/2019 11:17 INDICATION: Gestational diabetes. Third trimester. TECHNIQUE: Real-time pelvic ultrasound was performed. COMPARISON: None. FINDINGS: There is a single living fetus in vertex presentation. The placenta is anterior. heart rate is 123 beats per minute (bpm). Biophysical profile performed by the technologist: breathing (30 sec sustained breathing in 30 minutes): 2 out of 2 movement (3 gross body movements in 30 minutes): 2 out of 2 tone (one episode of flxskbf-oyfuzaact-wbpysjf limb movement): 2 out of 2 Amniotic fluid pocket (2 cm): 2 out of 2 Total score: 8 out of 8 IMPRESSION: 1. Single living fetus in vertex presentation. 2. Biophysical profile 8 out of 8. Reviewed, dictated and finalized at location A.
--- NOTE | ~2020-02-09 | US_ITS ---
EXAMINATION: US OB BPP wo non-stress DATE: 01/29/2020 11:20 INDICATION: Gestational diabetes. Third trimester. TECHNIQUE: Real-time pelvic ultrasound was performed. COMPARISON: Ultrasound 01/22/2020 FINDINGS: There is a single living fetus in vertex presentation. The placenta is anterior. heart rate is 161 beats per minute (bpm). Biophysical profile performed by the technologist: breathing (30 sec sustained breathing in 30 minutes): 2 out of 2 movement (3 gross body movements in 30 minutes): 2 out of 2 tone (one episode of woffhev-pnfnrgioo-fnsxtal limb movement): 2 out of 2 Amniotic fluid pocket (2 cm): 2 out of 2 Total score: 8 out of 8 IMPRESSION: 1. Single living fetus in vertex presentation. 2. Biophysical profile 8 out of 8. Reviewed, dictated and finalized at location B.
--- NOTE | ~2020-02-09 | US_ITS ---
EXAMINATION: US OB BPP wo non-stress DATE: 01/15/2020 11:57 INDICATION: Gestational diabetes. Third trimester. TECHNIQUE: Real-time pelvic ultrasound was performed. COMPARISON: Ultrasound 01/08/2020 FINDINGS: There is a single living fetus in vertex presentation. The placenta is anterior. heart rate is 147 beats per minute (bpm). Biophysical profile performed by the technologist: breathing (30 sec sustained breathing in 30 minutes): 2 out of 2 movement (3 gross body movements in 30 minutes): 2 out of 2 tone (one episode of awtvyra-kovbexaiy-lvxjefq limb movement): 2 out of 2 Amniotic fluid pocket (2 cm): 2 out of 2 Total score: 8 out of 8 IMPRESSION: 1. Single living fetus in vertex presentation. 2. Biophysical profile 8 out of 8. Reviewed, dictated and finalized at location B.
--- NOTE | ~2020-02-09 | US_ITS ---
EXAMINATION: US OB BPP wo non-stress DATE: 02/05/2020 10:42 INDICATION: Gestational diabetes. Third trimester. TECHNIQUE: Real-time pelvic ultrasound was performed. COMPARISON: Ultrasound 01/29/2020 FINDINGS: There is a single living fetus in vertex presentation. The placenta is anterior. heart rate is 132 beats per minute (bpm). Biophysical profile performed by the technologist: breathing (30 sec sustained breathing in 30 minutes): 2 out of 2 movement (3 gross body movements in 30 minutes): 2 out of 2 tone (one episode of xszcmtb-qarizawle-bxuqzgm limb movement): 2 out of 2 Amniotic fluid pocket (2 cm): 2 out of 2 Total score: 8 out of 8 IMPRESSION: 1. Single living fetus in vertex presentation. 2. Biophysical profile 8 out of 8. Reviewed, dictated and finalized at location A.
== END 2020-02-13 07:46 | disposition home or self-care (01) ==
LOC: ANHOBOP 10:36
PROVIDERS: Visit Provider Obstetrics & Gynecology
DX: O24.419 Gestational diabetes mellitus in pregnancy, unspecified control (principal); Z86.711 Personal history of pulmonary embolism; Z3A.32 32 weeks gestation of pregnancy; Z3A.33 33 weeks gestation of pregnancy; Z3A.34 34 weeks gestation of pregnancy; Z3A.35 35 weeks gestation of pregnancy; Z3A.36 36 weeks gestation of pregnancy; Z3A.37 37 weeks gestation of pregnancy; Z3A.38 38 weeks gestation of pregnancy
CPT/HCPCS: 59025; 76819

== ENCOUNTER 2020-02-20 14:30 | Emergency (ER) | payer BC, SELFPAY ==
--- NOTE | ~2020-02-20 | CT_ITS ---
EXAMINATION: CTA chest PE protocol DATE: 02/20/2020 16:50 INDICATION: Several days of shortness of breath. Recent section. TECHNIQUE: Computed tomography (CT) pulmonary angiogram of the chest was performed with 100 mL Omnipa que-350 intravenous contrast. Additional 3D reconstructions utilizing coronal maximum intensity proje ction (MIP) were performed. Automated exposure control and iterative reconstruction technique were em ployed. The dose-length product was 455.69 mGy-cm. COMPARISON: None FINDINGS: Excellent contrast opacification of the pulmonary arteries. There is mild streak artifact from dense contrast in the superior vena cava and right atrium. Minimal scattered respiratory motion artifact wh ich does not significantly limit evaluation. No pulmonary embolism. No pneumonia, pulmonary edema, pl eural effusion or pneumothorax. Heart size is normal. No pericardial effusion. No pathologically enla rged thoracic lymphadenopathy. Visualized bones and upper abdomen are unremarkable. IMPRESSION: 1. No pulmonary embolism or other acute cardiopulmonary disease. Reviewed, dictated and finalized at location A.
--- NOTE | ~2020-02-20 | XR_ITS ---
EXAMINATION: XR chest 2V DATE: 02/20/2020 16:33 INDICATION: Shortness of breath. Cough. TECHNIQUE: Frontal and lateral views of the chest were obtained. COMPARISON: CT abdomen and pelvis 07/06/2017 FINDINGS: The chest demonstrates clear lungs without pneumonia, pleural effusion, or pneumothorax. Th e heart size is normal. IMPRESSION: 1. No acute cardiopulmonary disease. Reviewed, dictated and finalized at location A.
[2020-02-20 14:38] VITALS: BP 127/57; PULSE 93; RESP 16; TEMP 36.8; O2SAT 97
--- NOTE | 2020-02-20 14:50 | ECG_ITS ---
Measurements Intervals [place] Rate: 93 P: 55 [place]: 142 QRS: 39 QRSD: 91 T: 31 QT: 332 QTc: 415 Interpretive Statements SINUS RHYTHM INCOMPLETE RIGHT BUNDLE BRANCH BLOCK BORDERLINE ECG Electronically Signed On 02-20-2020 16:41:44 CDT by Romain Stroud D.O.
[2020-02-20 15:01] LABS: Basophils Absolute Auto 0.1 K/mm3 (0.0-0.1); Basophils Percent Auto 0.8 % (0.2-1.2); Eosinophils Absolute Auto 0.3 K/mm3 (0-0.3); Eosinophils Percent Auto 2.8 % (0-4.4); Hematocrit 40.8 % (37.0-47.0); Hemoglobin 13.6 g/dL (12.0-15.0); Immature Granulocyte Absolute 0.18 K/mm3 (0.00-0.031); Immature Granulocyte Percent A 1.9 % (0-0.5); Lymphocytes Absolute Auto 2.83 K/mm3 (0.9-3.2); Lymphocytes Percent Auto 29.8 % (18.3-44.2); Mean Corpuscular HGB Conc 33.3 g/dl (32-36); Mean Corpuscular Hemoglobin 27.7 pg (26-34); Mean Corpuscular Volume 83.1 fl (80-100); Mean Platelet Volume 9.1 fl (7.4-10.4); Monocytes Absolute Auto 0.6 K/mm3 (0.1-0.6); Monocytes Percent Auto 6.6 % (2.6-8.5); Neutrophils Absolute Auto 5.5 K/mm3 (1.3-6.7); Neutrophils Percent Auto 58.1 % (45.5-73.1); Platelet Count Result 443 k/mm3 (150-375); Red Blood Count 4.91 M/mm3 (4.2-5.4); Red Cell Distribution Width 16.7 % (11.5-14.5); White Blood Count 9.5 K/mm3 (4.5-10.0)
[2020-02-20 15:09] LABS: Atypical Lymphocytes Present
[2020-02-20 15:13] LABS: Anion Gap 10 mmol/L (8-16); Blood Urea Nitrogen 21 mg/dL (7-17); Calcium 9.1 mg/dL (8.4-10.2); Carbon Dioxide 22 mmol/L (22-30); Chloride 105 mmol/L (98-107); Estimated CRCL calculation 111 ml/min; Estimated Glomerular Filt Rate > 60; Glucose 114 mg/dL (65-105); Potassium 4.2 mmol/L (3.4-5.0); Sodium 137 mmol/L (137-145)
[2020-02-20 15:14] LABS: D Dimer 0.99 ug/mL (<0.48); Platelet Estimate Increased (Adequate)
[2020-02-20 16:08] VITALS: PULSE 93
[2020-02-20 17:18] VITALS: BP 113/79; PULSE 90; RESP 18; O2SAT 100
--- NOTE | 2020-02-20 17:46 | ED.SOB ---
HPI - SOB/Dyspnea General Chief Complaint: Shortness of Breath/Dyspnea Stated Complaint: SHORT OF BREATH, HX C SECTION 5 SEPT Time Seen by Provider: 02/20/20 16:30 Source: patient and family Mode of arrival: ambulatory Limitations: no limitations History of Present Illness HPI Narrative: 39 years old white female presents with shortness of breath for the last 2 days. Patient denies any fever, chills, nausea, vomiting, excessive vaginal bleeding or discharge, chest pain or abdominal pain. Patient is a status post February 10, 2020. Currently patient on Lovenox for PE during . Scheduled to see a specialist next month. Related Data Allergies Allergy/AdvReac Type Severity Reaction Status Date / Time Penicillins Allergy Intermediate HIVES/WELTS Verified 01/19/20 14:30 Review of Systems Review of Systems: Narrative: CONSTITUTIONAL: Denies fever, chills, or sweats. EYES: Denies visual changes, redness, or discharge. ENT: Denies rhinorrhea, congestion, sore throat, or otalgia. CARDIOVASCULAR: Denies chest pain, palpitations, or edema. RESPIRATORY: Denies cough or dyspnea. GASTROINTESTINAL: Denies abdominal pain, nausea, vomiting, or diarrhea. GENITOURINARY: Denies dysuria or hematuria. SKIN: Denies rash or itching. MUSCULOSKELETAL: Denies back pain, joint pain, or myalgia. NEUROLOGIC: Denies headache, numbness, or weakness. PSYCHIATRIC: Denies anxiety or depression. [facility] Past Medical History Medical History GERD (gastroesophageal reflux disease) Gestational diabetes Pulmonary embolism affecting Family History Family History Grandparent Cancer Social History Social History Smoking status: Never smoker Substance use: never Gender identity (if verbalized by the patient): Female Spiritual care concerns: No Exam Narrative: Exam Narrative: General appearance: Well-developed, well-nourished Skin: Normal color Head: Normocephalic, nontraumatic Eyes: Clear conjunctiva ENT: Oropharynx normal, ears normal, nose normal Neck: Supple, nontender Chest and respiratory: Airway patent, no respiratory distress, no accessory muscle use Heart: Regular rate/rhythm Abdomen: Soft, nontender, no organomegaly, quiet bowel sounds Vascular: Normal peripheral pulses, normal capillary refill. Musculoskeletal: Normal range of motion, nontender back Neurologic: Alert and oriented ?3, HAZMAT CDL A DRIVER is normal as tested, no gross motor deficit Course Course Emergency Course: Stable Vital Signs Vital signs: Vital Signs Temperature 36.8 C 02/20/20 14:38 Pulse Rate 93 02/20/20 14:38 Respiratory Rate 16 02/20/20 14:38 Blood Pressure 127/57 L 02/20/20 14:38 Pulse Oximetry 97 02/20/20 14:38 Temperature 36.8 C 02/20/20 14:38 Pulse Rate 90 02/20/20 17:18 Respiratory Rate 18 02/20/20 17:18 Blood Pressure 113/79 02/20/20 17:18 Pulse Oximetry 100 02/20/20 17:18 MDM - SOB/Dyspnea MDM Narrative Medical decision making narrative: Shortness of breath, 10 days status post , patient is already on Lovenox which make pulmonary embolism less likely. My concern is pneumonia, pleural effusion, depression, anxiety, blues. Labs, chest x-ray, ordered. Further plan to follow , , Blood work-up, chest x-ray, CT a of the lung showed no acute abnormalities. Hormonal change, physiologic change, blues are my concern. The above work-up showed no significant reason for patient complaints. Patient scheduled to see her [facility] 2 days later Lab
[2020-02-20 17:55] VITALS: BP 127/73; PULSE 90; RESP 16; O2SAT 100
[2020-02-20 18:24] VITALS: BP 116/61; PULSE 84; RESP 18; O2SAT 99
== END 2020-02-20 18:25 | disposition home or self-care (01) ==
PROVIDERS: Emergency Provider Emergency Medicine
DX: R06.00 Dyspnea, unspecified (principal); Z86.711 Personal history of pulmonary embolism; Z79.01 Long term (current) use of anticoagulants
CPT/HCPCS: 36415; 71046; 71275; 80048; 85025; 85380; 93005; 99284; Q9967

== ENCOUNTER 2020-03-21 13:44 | Outpatient (CLI) | payer BC, SELFPAY ==
--- NOTE | ~2020-03-21 | US_ITS ---
EXAMINATION: US venous doppler [facility] DATE: 03/21/2020 14:22 INDICATION: Pulmonary embolism without acute cor pulmonale. TECHNIQUE: Grayscale ultrasound images without and with compression and Doppler ultrasound images of the bilateral lower extremity veins were obtained. COMPARISON: None. FINDINGS: The visualized portions of right common femoral vein, profunda (deep) femoral vein, femoral vein, pop liteal vein, peroneal veins, posterior tibial veins, and greater saphenous vein outflow are patent. The visualized portions of left common femoral vein, profunda femoral vein, femoral vein, popliteal v ein, peroneal veins, posterior tibial veins, and greater saphenous vein outflow are patent. IMPRESSION: 1. No deep venous thrombosis. Reviewed, dictated and finalized at location A.
== END 2020-03-21 13:45 | disposition home or self-care (01) ==
PROVIDERS: Visit Provider Internal Medicine Medical Oncology
DX: I26.99 Other pulmonary embolism without acute cor pulmonale (principal)
CPT/HCPCS: 93970

== ENCOUNTER 2020-04-18 07:41 | Outpatient (CLI) | payer BC, SELFPAY ==
[2020-04-18 08:19] LABS: Glucose Fasting 117 mg/dL
[2020-04-18 09:56] LABS: Glucose 1 Hour 153 mg/dL
[2020-04-18 11:00] LABS: Glucose 2 Hour 74 mg/dL
== END 2020-04-18 07:42 | disposition home or self-care (01) ==
LOC: ANHLAB 07:45
PROVIDERS: PCP Internal Medicine; Visit Provider Obstetrics & Gynecology
DX: O24.439 Gestational diabetes mellitus in the puerperium, unspecified control (principal)
CPT/HCPCS: 36415; 82951

== ENCOUNTER 2024-01-11 15:12 | Emergency (ER) | payer BC, SELFPAY ==
[2024-01-11 15:16] VITALS: BP 134/68; PULSE 112; RESP 20; TEMP 36.5; O2SAT 98
[2024-01-11 16:46] LABS: BEDSIDEPREGUCG Positive
[2024-01-11 16:56] LABS: Basophils Absolute Auto 0.1 K/mm3 (0.0-0.1); Basophils Percent Auto 0.5 % (0.2-1.2); Eosinophils Absolute Auto 0.2 K/mm3 (0-0.3); Eosinophils Percent Auto 1.4 % (0-4.4); Hematocrit 44.2 % (37.0-47.0); Hemoglobin 15.6 g/dL (12.0-15.0); Immature Granulocyte Absolute 0.07 K/mm3 (0.00-0.031); Immature Granulocyte Percent A 0.6 % (0-0.5); Lymphocytes Absolute Auto 3.48 K/mm3 (0.9-3.2); Lymphocytes Percent Auto 30.9 % (18.3-44.2); Mean Corpuscular HGB Conc 35.3 g/dl (32-36); Mean Corpuscular Hemoglobin 30.9 pg (26-34); Mean Corpuscular Volume 87.5 fl (80-100); Mean Platelet Volume 9.2 fl (7.4-10.4); Monocytes Absolute Auto 0.8 K/mm3 (0.1-0.6); Monocytes Percent Auto 7.4 % (2.6-8.5); Neutrophils Absolute Auto 6.7 K/mm3 (1.3-6.7); Neutrophils Percent Auto 59.2 % (45.5-73.1); Platelet Count Result 364 k/mm3 (150-375); Red Blood Count 5.05 M/mm3 (4.2-5.4); Red Cell Distribution Width 12.7 % (11.5-14.5); White Blood Count 11.3 K/mm3 (4.5-10.0)
[2024-01-11 16:57] LABS: Add Urine Microscopic? NO; Appearance Urine Clear (Clear); Bilirubin Urine Negative (Negative); Blood Urine Negative (Negative); Color Urine Yellow (Yellow); Glucose Urine UA Negative (Negative); Ketones Urine Negative (Negative); Leukocyte Esterase Ur Negative LEU/UL (Negative); Nitrate Urine Negative (Negative); Protein Urine Negative (Negative); Specific Grav Ur 1.008 (1.001-1.035); Urobilinogen Urine 0.2 mg/dL (<2.0)
[2024-01-11 17:06] LABS: Alanine Aminotransferase 27 U/L (6-35); Albumin Level 4.7 g/dL (3.5-5.1); Alkaline Phosphatase 51 U/L (38-126); Anion Gap 13 mmol/L (4-12); Aspartate Amino Transferase 26 U/L (14-36); Bilirubin,Total 0.5 mg/dL (0.2-1.3); Blood Urea Nitrogen 14 mg/dL (7-17); Calcium 9.2 mg/dL (8.4-10.2); Carbon Dioxide 21 mmol/L (22-30); Chloride 102 mmol/L (98-107); Estimated CRCL calculation 100 ml/min; Estimated Glomerular Filt Rate > 60; Glucose 89 mg/dL (65-110); Lipase 34 U/L (23-300); Potassium 3.8 mmol/L (3.4-5.0); Sodium 136 mmol/L (137-145)
--- NOTE | 2024-01-11 17:50 | ED.ABDPAIN ---
HPI - Abdominal Pain General Chief Complaint: Abdominal Pain Stated Complaint: positive test, cramping Time Seen by Provider: 01/11/24 16:41 Source: patient Mode of arrival: ambulatory Limitations: no limitations History of Present Illness HPI narrative: This is a 43-year-old female, with no significant past medical history, who presents to the emergency department complaining mild lower abdominal cramping for the past 3 days. She also states she had a positive home test. The patient denies any known vaginal bleeding, trauma, bleeding, nausea, vomiting or dysuria. Her last menstrual period was approximately November 04, 2023. She has no other complaints at this time. Related Data Allergies Allergy/AdvReac Type Severity Reaction Status Date / Time Penicillins Allergy Intermediate HIVES/WELTS Verified 01/11/24 16:47 Review of Systems Review of Systems: Last menstrual period approximately November 04, 2023 All systems reviewed & are unremarkable except as noted in HPI and below PMFSH Past Medical History Medical History (Updated 01/12/24 @ 00:51 by Victoriano Desai MD) GERD (gastroesophageal reflux disease) Gestational diabetes Pulmonary embolism affecting Family History Family History Grandparent Cancer Social History Social History Smoking status: Never smoker Substance use: never Gender identity (if verbalized by the patient): Female Spiritual care concerns: No Exam Narrative: GENERAL: Well-developed, well-nourished, and in no acute distress. HEAD: Normocephalic, atraumatic. EYES: PERRLA and EOMI. CHEST: Clear to auscultation. No respiratory distress. No wheezes rales or rhonchi HEART: Regular rate and rhythm. No murmur heard. Normal peripheral pulses. ABDOMEN: Soft, nontender, nondistended, normal active bowel sounds. No CVA tenderness to palpation EXTREMITIES: Normal range of motion. No edema. SKIN: Warm, dry, no rash. NEURO: Alert and oriented x3. No focal deficit. Moving all 4 limbs spontaneously PSYCH: Normal mood and affect. Course Course Emergency Course: 18:02 - The patient's abdominal exam is not concerning for acute abdomen. Bedside ultrasound by me demonstrates a single intrauterine without changes concerning for free intraabdominal fluid. White blood cell count slightly elevated at 11.3 with normal hemoglobin and platelet count. Chemistries demonstrate mildly decreased bicarb 21 but is otherwise unremarkable. UA not concerning for urinary tract infection or bacteriuria. test positive. Estimated gestational age by last menstrual. (November 04, 2023) 9 weeks 4 days. Will discharge with recommendation for OB follow-up. I discussed the findings and recommendations with the patient. Discussed return and emergency precautions including signs/symptoms of acute abdomen, miscarriage and intractable vomiting. The patient voiced understanding and agreement with the plan. All questions answered to her satisfaction. Vital Signs Vital signs: Vital Signs Temperature 97.7 F 01/11/24 15:16 Pulse Rate 112 H 01/11/24 15:16 Respiratory Rate 20 01/11/24 15:16 Blood Pressure 134/68 01/11/24 15:16 Pulse Oximetry 98 01/11/24 15:16 Temperature 98.1 F 01/11/24 18:14 Pulse Rate 100 01/11/24 18:14 Respiratory Rate 16 01/11/24 18:14 Blood Pressure 132/70 01/11/24 18:14 Pulse Oximetry 99 01/11/24 18:14 MDM - Abdominal Pain MDM Narrative Medical decision making narrative: Plan: Labs, bedside ultrasound, pain control, reassess Differential Diagnosis Differential diagnosis: Likely acute appendicitis, calculus of kidney, diverticulitis, gastroenteritis and other (Urinary tract infection, round ligament pain, metabolic abnormality, other) Lab Data 01/11/24 16:48 01/11/24 16:48 Labs: [place]
[2024-01-11 18:14] VITALS: BP 132/70; PULSE 100; RESP 16; TEMP 36.7; O2SAT 99
== END 2024-01-11 18:16 | disposition home or self-care (01) ==
PROVIDERS: Emergency Medicine; Emergency Provider Preventive Medicine Aerospace Medicine; PCP Internal Medicine
DX: O26.891 Other specified pregnancy related conditions, first trimester (principal); Z3A.09 9 weeks gestation of pregnancy
CPT/HCPCS: 36415; 80053; 81003; 81025; 83690; 84702; 85025; 99283